=== PATIENT | female | born 1990 | race Native Hawaiian/Other Pacific Islander ===

== ENCOUNTER 2018-01-25 11:34 | Emergency (ER) | payer OTHER ==
[2018-01-25 15:10] VITALS: BMI 30.2
[2018-01-25] MEDS ORDERED: Potassium Chloride 20 mEq ER Tab PO ONE ×2 (15:16→15:18)
--- NOTE | 2018-01-25 15:21 | ED PDOC ---
HPI:Nausea, Vomiting, Diarrhea Time Seen by Provider: 01/25/18 15:08 Chief Complaint (Nursing): GI Problem Chief Complaint (Provider): nausea vomiting History Per: Patient History/Exam Limitations: no limitations Onset/Duration Of Symptoms: Days (3-4\), Intermittent Episodes, Gradual Quality Of Discomfort: denies: Sharp, Cramping Associated Symptoms: Nausea, Vomiting. denies: Diarrhea, Loss Of Appetite Exacerbating Factors: None Alleviating Factors: None Additional Complaint(s): 27yo female currently approx 9wks with nausea/vomiting ongoing intermittently for several days to a week. Denies bleeding. Had slight cramping this morning. Denies fever, focal abdominal pain or diarrhea. Using ousmane at home with minimal relief. Abnormal Vaginal Bleeding: No Past Medical History Vital Signs: Last Vital Signs Temp 98.3 F 01/25/18 11:45 Pulse 71 01/25/18 11:45 Resp 18 01/25/18 11:45 BP 119/75 01/25/18 11:45 Pulse Ox 99 01/25/18 11:45 - Medical History PMH: Hypothyroidism - Home Medications Home Medications: Ambulatory Orders Medication Instructions Recorded Doxylamine/Pyridoxine HCl (B6) 1 each PO HS PRN #10 tablet. 01/25/18 [Haresh Parra 10-10 mg Tablet] - Allergies Allergies/Adverse Reactions: Allergies Allergy/AdvReac Type Severity Reaction Status Date / Time No Known Allergies Allergy Verified 01/25/18 15:10 - ECG O2 Sat by Pulse Oximetry: 99 Medical Decision Making Medical Decision Making: labs performed([employer] downtime) reveal mild hypokalemia K+ replaced NA 134 chem otherwise unremarkable CO2 24 Recd 2L IVF and reglan with relief of nausea, tolerated PO. Rx diclegis and has followup OB soon Disposition - Clinical Impression Clinical Impression: Hyperemesis gravidarum - Disposition Condition: STABLE Additional Instructions: See OB doctor in 4-5 days for followup. Recommend diclegis medication as directed and prescribed for nausea. Return to ER for any pain, dehydration or worse/new symptoms. Prescriptions: Doxylamine/Pyridoxine HCl (B6) [Haresh Parra 10-10 mg Tablet] 1 each PO HS PRN #10 tablet.dr SANTIZO Reason: Nausea/Vomiting Instructions: Hyperemesis Gravidarum Forms: [employer] (German)
[2018-01-25 15:28] VITALS: BP 120/78; PULSE 78; RESP 19; TEMP 97; O2SAT 98
[2018-01-25 15:35] LABS: BASO % 0.3 % (0.0-2.0); EOS % 0.4 % (0.0-4.0); HEMOGLOBIN 12.3 g/dL (12.0-16.0); LYMPH # 1.7 K/uL (1.0-4.3); LYMPH % 20.3 % (20.0-40.0); MEAN CORPUSCULAR HGB CONC 34.5 g/dL (33.0-37.0); MEAN PLATELET VOLUME 7.6 fl (7.2-11.7); MONO # 0.6 K/uL (0.0-0.8); MONO % 6.6 % (0.0-10.0); NEUT # 6.1 K/uL (1.8-7.0); NEUT % 72.4 % (50.0-75.0); RBC 4.11 Mil/uL (3.80-5.20); RED CELL DISTRIBUTION WIDTH 14.7 % (11.5-14.5); WHITE BLOOD COUNT 8.5 K/uL (4.8-10.8)
[2018-01-25 15:47] LABS: ALB/GLOB RATIO 1.1 (1.0-2.1); ALBUMIN 3.7 g/dL (3.5-5.0); ALT/SGPT 23 U/L (9-52); AST/SGOT 29 U/L (14-36); BLOOD UREA NITROGEN 8 mg/dl (7-17); GFR NON-AFRICAN AMERICAN > 60
[2018-01-25 15:58] LABS: SQUAMOUS EPITHIAL 10 /hpf (0-5); URINE BACTERIA RARE (<OCC); URINE BILIRUBIN NEGATIVE (NEGATIVE); URINE BLOOD NEGATIVE (NEGATIVE); URINE CLARITY SLIGHTY-CLOUDY (Clear); URINE COLOR YELLOW (YELLOW); URINE GLUCOSE (UA) NEG (Normal); URINE LEUKOCYTE ESTERASE NEG Leu/uL (Negative); URINE PROTEIN NEGATIVE (NEGATIVE); URINE UROBILINOGEN 0.2-1.0 mg/dL (0.2-1.0)
--- NOTE | 2018-01-26 09:45 | US ---
Date of service: 01/25/2018 PROCEDURE: OB Pelvic Ultrasound HISTORY: Vomiting LMP: 11/13/2017 COMPARISON: None available. FINDINGS: UTERUS: Gestational sac: Single intrauterine gestation. Measures 5.7 cm compatible with estimated gestational 11 weeks, 5 days Yolk sac: Measures 0.4 cm pole: Seaman-rump length measures 3.0 cm compatible with estimated gestational age of 10 weeks, 0 days Heart rate: 158 bpm. age (Ultrasound estimated): 10 weeks, 6 days Sharon-gestational hemorrhage: Trace Date of delivery (Ultrasound estimated) : 08/17/2018 Uterus measures 13.0 x 8.2 x 9.1 cm. Anteverted. Normal in size and appearance. CERVIX: Measures 4.8 cm. Long and closed. No cervical abnormality seen. RIGHT OVARY: Not visualized LEFT OVARY: Measures 4.1 x 2.5 x 2.6 cm. No solid mass. Normal flow. FREE FLUID: None. OTHER FINDINGS: None. IMPRESSION: Single live intrauterine gestation with average ultrasound age of 10 weeks, 6 days. heart rate 158 beats per minute. Cervix long and closed. Trace subchorionic hemorrhage.
== END 2018-01-25 15:29 | disposition home or self-care (01) ==
LOC: H.ER 11:34 → H.EDDOWN 11:34 → H.ER 15:29
DX: O21.1 Hyperemesis gravidarum with metabolic disturbance (principal)

== ENCOUNTER 2018-07-15 14:47 | Emergency (ER) | payer BC, OTHER ==
[2018-07-15 15:04] VITALS: BMI 32.8
[2018-07-15] MEDS ORDERED: Betamethasone Soluspan 30 mg/5mL Inj Susp IM ONE (15:28)
--- NOTE | 2018-07-15 16:14 | OBHP ---
Datetime: 07/15/2018 16:07 IP Adm Impression: , intrauterine IP Admit Plan: Observation/Evaluation; Discharge home Admit Comment, IP Provider: Patient is a with contractions, no vaginal bleeding, +FM, no gaston azam. Patient reports no antepartum issues, no surgical issues, no medication. Previous history of 36 .6 week labor followed by vaginal delivery. Patient evaluated, closed on exam, FHR = 125 mod amber, +ac cels, no decels, reactive NST. No contractions, ruled out for labor. Discussed case with Dr. Radha Canales, attending gave instructions for Betamethasone. IM injection given, patient dishcarged and given labo r precautions and instructed to come back to [facility]ED tomorrow for second injections Pelvic Type - PN: Adequate Extremities - PN: Normal Abdomen - PN: Normal Back - PN: Normal Breast - PN: Normal Lungs - PN: Normal Heart - PN: Normal Thyroid - PN: Normal Neurologic - PN: Normal HEENT - PN: Normal General - PN: Normal FHR - Baseline A Provider: 125 Contraction Comments Provider: none EGA AdmitDate IP: 33.6 Vital Signs Provider: Reviewed; Within Normal Limits IP Chief Complaint: Uterine contractions NICHD Variability Prov Fetus A: Moderate 6-25bpm NICHD Accel Fetus A IP Provider: [id number] NICHD Decel Fetus A IP Provider: None Dilatation, Provider: closed Effacement, Provider: 50 Genitourinary Exam: Normal DTRs - PN: Normal
[2018-07-15 20:23] VITALS: BP 98/60; PULSE 85; TEMP 97.8; O2SAT 99
== END 2018-07-15 16:00 | disposition home or self-care (01) ==
LOC: H.EROB2 14:47
DX: O26.93 Pregnancy related conditions, unspecified, third trimester (principal); R10.2 Pelvic and perineal pain; Z23 Encounter for immunization; Z3A.33 33 weeks gestation of pregnancy
CPT/HCPCS: 96372; 99283; J0702

== ENCOUNTER 2018-07-16 16:04 | Emergency (ER) | payer BC ==
[2018-07-16 16:12] VITALS: BMI 32.5
[2018-07-16] MEDS ORDERED: Betamethasone Soluspan 30 mg/5mL Inj Susp IM ONE (16:12)
[2018-07-16 22:36] VITALS: BP 115/66; PULSE 90; RESP 20; TEMP 98.1; O2SAT 98
--- NOTE | 2018-07-18 09:42 | OBHP ---
Datetime: 07/16/2018 16:20 IP Adm Impression: , intrauterine IP Admit Plan: Observation/Evaluation; Discharge home Admit Comment, IP Provider: 28 y/o @ 34 wks presenting for 2nd dose of betamethasone injecti on. Previous shot was given here yesterday. She reports delivering first baby at 36.6wks. +FM. She de nies any vb, ctx or loss of fluid. OBGYNhx: 2 miscarriages, 1 abortoin PMH: Hoshimoto's Meds: synthroid 125mcg, PNV Allergies: NKA Surghx: LEEP 2018, D _ C Sochx: denies EtOH, cigarette or elicit drug use ROS: 12 points reviewed and are neg unless otherwise mentioned in HPI PE: Cardio: s1s2 RRR Lungs: cta b/l Abd: gravid, soft, nontender, no rigidity, no guarding Ext: calves nontender, nonedematous A/P: 28 y/o , clinically stable, @ 34 wks presenting for 2nd dose of betamethasone injectio n. -NST reactive and reassuring -Will given betamethasone 12mg IM Patient seen and examined with Dr. Yuki Salvador, PGY-1 Addendum: patient was seen and examined with resident and I agree with the above. Extremities - PN: Normal Abdomen - PN: Normal Lungs - PN: Normal Heart - PN: Normal General - PN: Normal EGA AdmitDate IP: 34.0 Vital Signs Provider: Reviewed; Within Normal Limits IP Chief Complaint: Other
== END 2018-07-16 17:10 | disposition home or self-care (01) ==
LOC: H.EROB2 16:04
DX: O09.93 Supervision of high risk pregnancy, unspecified, third trimester (principal); Z23 Encounter for immunization; Z3A.34 34 weeks gestation of pregnancy
CPT/HCPCS: 96372; 99281; J0702

== ENCOUNTER 2018-08-10 19:30 | Inpatient (IN) | payer BC ==
[2018-08-10 19:48] VITALS: BMI 33.4
[2018-08-10 20:25] LABS: BASO % 0.4 % (0.0-2.0); EOS # 0.1 K/uL (0.0-0.7); EOS % 0.7 % (0.0-4.0); HEMOGLOBIN 11.4 g/dL (12.0-16.0); LYMPH # 1.8 K/uL (1.0-4.3); LYMPH % 19.3 % (20.0-40.0); MEAN CELL VOLUME 91.2 fl (81.0-99.0); MEAN CORPUSCULAR HEMOGLOBIN 30.5 pg (27.0-31.0); MEAN CORPUSCULAR HGB CONC 33.4 g/dL (33.0-37.0); MEAN PLATELET VOLUME 7.6 fl (7.2-11.7); MONO # 0.9 K/uL (0.0-0.8); MONO % 9.7 % (0.0-10.0); NEUT # 6.3 K/uL (1.8-7.0); NEUT % 69.9 % (50.0-75.0); NRBC % 0.1 % (0.0-0.0); RBC 3.73 Mil/uL (3.80-5.20); WHITE BLOOD COUNT 9.1 K/uL (4.8-10.8)
[2018-08-10] MEDS ORDERED: Penicillin G 5 Million Unit Vial IVPB ONE (21:25)
[2018-08-11] MEDS ORDERED: Oxytocin 30 UNIT in NS 500 ml 30 UNITS/500 ML BAG IV ONE (01:30)
[2018-08-11] MEDS: Lactated Ringer's 500 ML IV SCH ×2 (02:00→09:45)
[2018-08-11 04:23] VITALS: TEMP 98.4
[2018-08-11] MEDS ORDERED: Lactated Ringer's 1,000 ML IV SCH (10:15)
[2018-08-11 17:36] VITALS: BP 114/68; PULSE 82; RESP 18; O2SAT 100
--- NOTE | 2018-08-12 10:45 | OBDCSUM ---
Datetime: 08/11/2018 12:28 Discharge Instructions, Provider: Routine instructions given
--- NOTE | 2018-08-12 10:45 | OBADHP ---
Datetime: 08/10/2018 20:06 IP Chief Complaint Other: IOL Admit Comment, IP Provider: HPI: Andrew is a 28 year old at 38.4 here for labor induction/augm entation per her provider, Dr. Canales. She has been having intermittent contractions and was 4cm at the office today. She is admitted for labor support. EMIL is 08/20/18 based off LMP of 11/13/2017 and confirmed by 30 wk US History 1 previous in 2016 3 SABs, one requiring a D_C Problems Denies PMH Monica thyroiditis, on levothyroxine records mention potential prediabetes but all lab work during pregnany was normal PSH LEEP procedure D_C Medications Levothyroxine 125mcg Allergies NKDA Social Denies tobacco, alcohol and drug use PHYSICAL EXAM Vitals reviewed See exam section labs: GBS POSITIVE, GTT 93, Rubella immune, AB+, RPR negative, Hep B ne, Hgb A1c 5.4% ASSESSMENT/PLAN: 28 year old at 38.4 here for labor with likely need for augmentation - Per Dr. Canales patient will receive 50mcg of cytotec - She will need Pen G when she ruptures or becomes more active - Anticipate vaginal delivery Capri Lee MD OB Fellow agree with above, pt was seen adn examiend in office earlier in day and had contrapciton pain and amitted for labor given erbical change and pt hx of preciptious delvery pt advmitted, reexamined , augmettion started , however given no cervicla change control specialist a period of time pt was subsequently discharged after being reexamiend. r/b/a/i dw patietn pt given labor preuaitn will f/u office within 1 wee and ruenr to hpisptal Extremities - PN: Normal Abdomen - PN: Normal Neurologic - PN: Normal HEENT - PN: Normal General - PN: Normal Presentation-Admit: Vertex FHR - Baseline A Provider: 140 Gestation - Est Wks by US: 38.4 Vital Signs Provider: Reviewed; Within Normal Limits NICHD Variability Prov Fetus A: Moderate 6-25bpm NICHD Accel Fetus A IP Provider: [id number] FHR Category Provider Fetus A: Category I NICHD Decel Fetus A IP Provider: None IP Adm Impression: Term, intrauterine IP Admit Plan: Admit to unit; Initiate labor augmentation protocol Datetime: 07/16/2018 16:20 Lungs - PN: Normal Heart - PN: Normal IP Chief Complaint: Other EGA AdmitDate IP: 34.0 Datetime: 07/15/2018 16:07 Pelvic Type - PN: Adequate Back - PN: Normal Breast - PN: Normal Thyroid - PN: Normal Contraction Comments Provider: none Dilatation, Provider: closed Effacement, Provider: 50 Genitourinary Exam: Normal DTRs - PN: Normal
== END 2018-08-11 12:45 | disposition home or self-care (01) | DRG 998 ==
LOC: H.L&D 20:00
PROVIDERS: ADMIT Obstetrics & Gynecology Gynecology; ATTEND Obstetrics & Gynecology Gynecology
PROC: 4A1HXCZ Monitoring of Products of Conception, Cardiac Rate, External Approach (ICD-10-PCS; principal; 2018-08-10)
DX: O99.284 Endocrine, nutritional and metabolic diseases complicating childbirth (principal); E06.3 Autoimmune thyroiditis; Z3A.38 38 weeks gestation of pregnancy

== ENCOUNTER 2018-08-17 18:02 | Inpatient (IN) | payer BC ==
[2018-08-17 18:06] VITALS: BMI 33.6
[2018-08-17] MEDS ORDERED: Lactated Ringer's 1,000 ML IV SCH (18:15)
[2018-08-17] MEDS ORDERED: Penicillin G 5 Million Unit Vial IVPB ONE (18:47)
[2018-08-17 19:05] VITALS: PULSE 82
[2018-08-17 19:45] LABS: BASO % 0.2 % (0.0-2.0); EOS % 0.6 % (0.0-4.0); HEMOGLOBIN 11.6 g/dL (12.0-16.0); LYMPH # 1.4 K/uL (1.0-4.3); LYMPH % 16.3 % (20.0-40.0); MEAN CELL VOLUME 91.3 fl (81.0-99.0); MEAN CORPUSCULAR HEMOGLOBIN 31.1 pg (27.0-31.0); MEAN PLATELET VOLUME 8.2 fl (7.2-11.7); MONO # 0.8 K/uL (0.0-0.8); MONO % 9.4 % (0.0-10.0); NEUT # 6.1 K/uL (1.8-7.0); NEUT % 73.5 % (50.0-75.0); NRBC % 0.1 % (0.0-0.0); RBC 3.74 Mil/uL (3.80-5.20); RED CELL DISTRIBUTION WIDTH 14.2 % (11.5-14.5); WHITE BLOOD COUNT 8.3 K/uL (4.8-10.8)
[2018-08-17] MEDS ORDERED: Oxytocin 30 UNIT in NS 500 ml 30 UNITS/500 ML BAG IV ONE (22:00)
[2018-08-17] MEDS ORDERED: OXYTOCIN/0.9 % NS 20 UNIT/1,000 ML BAG IV SCH (22:00)
[2018-08-18] MEDS ORDERED: Oxytocin 30 UNIT in NS 500 ml 30 UNITS/500 ML BAG IV ONE (00:30)
[2018-08-18] MEDS ORDERED: Lidocaine 1% Inj (20ml) ONE (00:41)
[2018-08-18] MEDS ORDERED: Benzocaine/Menthol SPRAY TOP PRN (00:50)
[2018-08-18] MEDS ORDERED: Oxycodone/Acetaminophen 5/325 mg Tab PO PRN ×3 (00:50→02:44)
--- NOTE | 2018-08-18 01:09 | OBADHP ---
Datetime: 08/17/2018 18:31 Admit Comment, IP Provider: HPI: Andrew is a 28 year old at 39.4 here for scheduled IOL. EMIL is 08/20/18 based off LMP of 11/13/2017 and confirmed by 30 wk US History 1 previous in 2016 3 SABs, one requiring a D_C Problems Denies PMH Monica thyroiditis, on levothyroxine records mention potential prediabetes but all lab work during pregnany was normal PSH LEEP procedure D_C Medications Levothyroxine 125mcg Allergies NKDA Social Denies tobacco, alcohol and drug use PHYSICAL EXAM Vitals reviewed See exam section labs: GBS POSITIVE, GTT 93, Rubella immune, AB+, RPR negative, Hep B ne, Hgb A1c 5.4% ASSESSMENT/PLAN: 28 year old at 39.4 here for labpor induction - Plan to AROM, may need pitocin augmentation - Start GBS prophylaxis now - Continue Synthroid during admission Plan discussed with attending, Dr. Canales. Capri Lee MD OB Fellow Patient was seen with the resident I agree with the note Lungs - PN: Normal Heart - PN: Normal HEENT - PN: Normal General - PN: Normal FHR - Baseline A Provider: 125 Membranes, Provider: Intact Vital Signs Provider: Reviewed; Within Normal Limits NICHD Variability Prov Fetus A: Moderate 6-25bpm NICHD Accel Fetus A IP Provider: [id number] FHR Category Provider Fetus A: Category I Genitourinary Exam: Normal IP Adm Impression: Term, intrauterine IP Admit Plan: Admit to unit; Initiate labor induction protocol Datetime: 07/16/2018 16:20 EGA AdmitDate IP: 35.0
--- NOTE | 2018-08-18 01:11 | OBDS ---
MATERNAL INFORMATION Provider Comments: Called to assist in precipitous delivery, female delivered at 12:47 AM, th e baby was bulb suctioned and transferred to maternal chest, the cord was clamped and cut, 3 vessels was noted. The placenta was delivered at 12:52 AM intact, the estimated blood loss was 150 cc. A fi rst-degree laceration was noted and repaired with 2-0 Rapide. The mother tolerated the procedure wel l baby went to well baby nursery with Apgars of 9 LABOR SUMMARY EDC: 08/20/2018 00:00 EDC: 08/27/2018 00:00 No. Babies in Womb: 1 LABOR INFORMATION Cervical Ripening Agents: Cytotec @ 50 mcg Group B Beta Strep: Positive MEMBRANES Membranes Rupture Method: Artificial (Annotations: by Dr Yepez ) Rupture of Membranes: 08/17/2018 19:42 Amniotic Fluid Color: Clear Amniotic Fluid Amount: Moderate Amniotic Fluid Odor: None
--- NOTE | 2018-08-18 01:12 | OBPN ---
Datetime: 08/18/2018 01:10 IP Progress Note Comment: pt admitted for labor augmentatin s/p arom pitocn progressed quickly form 7-->10 delivered nsnvd no compciaotn live infant agpar 9,9 Datetime: 08/17/2018 18:31 Membranes, Provider: Intact FHR - Baseline A Provider: 125 Vital Signs Provider: Reviewed; Within Normal Limits NICHD Accel Fetus A IP Provider: [id number] FHR Category Provider Fetus A: Category I NICHD Variability Prov Fetus A: Moderate 6-25bpm Datetime: 08/10/2018 20:06 Gestation - Est Wks by US: 38.4 Presentation-Admit: Vertex NICHD Decel Fetus A IP Provider: None Datetime: 07/15/2018 16:07 Contraction Comments Provider: none Dilatation, Provider: closed Effacement, Provider: 50
[2018-08-18] MEDS: Levothyroxine 125 MCG TAB PO SCH (06:20)
[2018-08-18] MEDS: Benzocaine/Menthol SPRAY TOP PRN (06:20)
[2018-08-18] MEDS ORDERED: Levothyroxine 125 MCG TAB PO SCH (06:30)
[2018-08-18 06:37] LABS: BASO % 0.2 % (0.0-2.0); EOS % 0.1 % (0.0-4.0); HEMOGLOBIN 9.9 g/dL (12.0-16.0); LYMPH # 1.4 K/uL (1.0-4.3); LYMPH % 8.6 % (20.0-40.0); MEAN CELL VOLUME 91.3 fl (81.0-99.0); MEAN CORPUSCULAR HEMOGLOBIN 30.8 pg (27.0-31.0); MEAN CORPUSCULAR HGB CONC 33.7 g/dL (33.0-37.0); MEAN PLATELET VOLUME 7.9 fl (7.2-11.7); MONO # 1.1 K/uL (0.0-0.8); MONO % 6.6 % (0.0-10.0); NEUT # 13.8 K/uL (1.8-7.0); NEUT % 84.5 % (50.0-75.0); PLATELET COUNT 156 K/uL (130-400); RBC 3.23 Mil/uL (3.80-5.20); RED CELL DISTRIBUTION WIDTH 14.1 % (11.5-14.5); WHITE BLOOD COUNT 16.3 K/uL (4.8-10.8)
[2018-08-18 08:07] LABS: BANDS 1 % (0-2); EOSINOPHIL 1 % (0-7); LYMPHOCYTE 10 % (20-50); MONOCYTE 7 % (0-10); NEUTROPHIL 81 % (42-75); PLATELET ESTIMATE NORMAL (NORMAL); TOTAL CELLS COUNTED 100
[2018-08-18] MEDS: Oxycodone/Acetaminophen 5/325 mg Tab PO PRN (22:09)
[2018-08-19] MEDS: Oxycodone/Acetaminophen 5/325 mg Tab PO PRN (04:32)
[2018-08-19] MEDS: Levothyroxine 125 MCG TAB PO SCH ×2 (06:13→06:15)
[2018-08-19] MEDS ORDERED: Ammonia 2% Inhalant ONE (06:49)
--- NOTE | 2018-08-19 06:58 | PCM.RRT ---
I.Reason for TITLE I PARAPROFESSIONAL - A) Acute Change in Patient: Subjective: TITLE I PARAPROFESSIONAL: 510-1 Time: 6:45am TITLE I PARAPROFESSIONAL reason: AMS Initial VS: BP 100/67 HR 87, O2 Sat 100% S: Pt is a 28 yo F with hx of seizure s/p on 08/18/18, TITLE I PARAPROFESSIONAL was called due to AMS, pt started to feel dizziness and lightheaded, reports she then started have SOB and progressed to being unresponsive with trembling. O: Gen: Responding to verbal stimuli by nodding her head HEENT: Eye twitching Card: RRR, + S1S2, no m/r/g Resp: CTA, no w/r/r Abdom: + BS throughout, No tenderness to palpation Neuro: Responding intermittently to commands, when performing arm drop test patient guided arm down Intervention Smelling salt EKG- NSR- HR 67 Accucheck 67 Outcome: Arousable to smelling salt, responsible to stimuli TITLE I PARAPROFESSIONAL End vitals: BP 124/75, HR 74, O2 Sat 100% on full NC TITLE I PARAPROFESSIONAL End: 6:58am TITLE I PARAPROFESSIONAL leader: Dr. Hernandez TITLE I PARAPROFESSIONAL Residents: Dr. Johnnie Whitney, Dr. Esthela Ferris, Dr. Candy Simon
[2018-08-19 07:17] LABS: MEAN CELL VOLUME 92.2 fl (81.0-99.0); MEAN CORPUSCULAR HEMOGLOBIN 31.1 pg (27.0-31.0); MEAN CORPUSCULAR HGB CONC 33.7 g/dL (33.0-37.0); RBC 3.22 Mil/uL (3.80-5.20); RED CELL DISTRIBUTION WIDTH 14.2 % (11.5-14.5); WHITE BLOOD COUNT 9.9 K/uL (4.8-10.8)
[2018-08-19 07:38] LABS: ALB/GLOB RATIO 1.1 (1.0-2.1); ALT/SGPT 25 U/L (9-52); AST/SGOT 22 U/L (14-36); BLOOD UREA NITROGEN 12 mg/dl (7-17); CALCIUM 8.5 mg/dL (8.4-10.2); GFR NON-AFRICAN AMERICAN > 60
--- NOTE | 2018-08-19 09:37 | CARD ---
APPROVED REPORT Date of service: 08/19/2018 EKG Measurement Heart [id number] <Conclusion> Normal sinus rhythm with sinus arrhythmia Normal ECG
[2018-08-20] MEDS: Levothyroxine 125 MCG TAB PO SCH (06:27)
[2018-08-20] MEDS: Benzocaine/Menthol SPRAY TOP PRN (22:05)
[2018-08-21 03:48] VITALS: BP 105/69; RESP 20; TEMP 98.6; O2SAT 98
== END 2018-08-20 23:05 | disposition home or self-care (01) | DRG 807 ==
LOC: H.L&D 18:06 → H.OB/GYN 08-18 02:44
PROVIDERS: ADMIT Obstetrics & Gynecology; ATTEND Obstetrics & Gynecology
PROC: 4A1HXCZ Monitoring of Products of Conception, Cardiac Rate, External Approach (ICD-10-PCS; 2018-08-17)
PROC: 10E0XZZ Delivery of Products of Conception, External Approach (ICD-10-PCS; principal; 2018-08-18)
PROC: 0HQ9XZZ Repair Perineum Skin, External Approach (ICD-10-PCS; 2018-08-18)
DX: O70.0 First degree perineal laceration during delivery (principal); Z37.0 Single live birth; O62.3 Precipitate labor; Z3A.39 39 weeks gestation of pregnancy; O99.284 Endocrine, nutritional and metabolic diseases complicating childbirth; E06.3 Autoimmune thyroiditis